=== PATIENT | male | born 1965 | race Caucasian/White ===

== ENCOUNTER → 2020-03-23 | Day surgery (SDC) | payer BC ==
[2020-03-18 14:57] LABS: BASOPHIL % 0.2 % (0.0-0.2); EOSINOPHIL # 0.1 10^3/uL (0.0-0.2); EOSINOPHIL % 1.3 % (0.0-5.0); LYMPHOCYTES # 1.57 10^3/uL1 (1.0-4.8); LYMPHOCYTES % 17.5 % (24.0-44.0); MEAN CORP HGB 29.8 pg (26-34); MONOCYTES # 0.6 10^3/uL (0.3-0.8); MONOCYTES % 6.8 % (5.0-12.0); NEUTROPHIL # 6.6 10^3/uL (1.8-7.7); PLATELET COUNT 161 10^3/uL (150-400); RED CELL DISTRIBUTION WIDTH 13.2 % (11.5-14.5)
--- NOTE | 2020-03-18 15:00 | PCM.EKG ---
[facility] Test Date: 2020-03-18 Test Time: 14:57:22 Pat Name: SHIMA HERNANDEZ Department: Room: Gender: M Conference Organizer: : 1965 Requested By: MARYLU FERRELL Order Number: [id number] Reading MD: Measurements Intervals [place] Rate: 79 P: 54 KS: 138 QRS: -36 QRSD: 111 T: 61 QT: 384 QTc: 441 Interpretive Statements Sinus rhythm Incomplete RBBB and LAFB Consider right ventricular hypertrophy No previous ECG available for comparison Please click the below link to view image of tracing.
[2020-03-18 15:51] LABS: CALCIUM 9.7 mg/dL (8.4-10.5); CARBON DIOXIDE 24.4 mmol/L (20.0-32)
[2020-03-23] VITALS (12 sets, daily range): BP systolic 138–166; BP diastolic 74–100
[~2020-03-23] VITALS: Ht 170.2 cm; Wt 85.3 kg
[~2020-03-23] MED LIST: ASPI-667 PO; ATOR10TA PO; CLOP75TA52 PO; DECADRON ONE; DILAUDID IV PRN; DILAUDID ONE; DIPRIVAN 100 ML IV ONE; DIPRIVAN IV ONE; EMPA1TAB3 PO; INSU300I SQ; LACTATED RINGERS 1,000 ML IV SCH; LIDOCAINE 2% VIAL ONE; MORPHINE SULFATE ONE; NAROPIN 0.5% 5 MG/ML VIAL ONE; NS 1000ML 1,000 ML ONE; NS 250ML 250 ML IV ONE; NS 3000ML IRR IR ONE; RAMI5CAP37 PO; SODIUM CHLORIDE IRR BOTTLE IR ONE; SUBLIMAZE IV PRN; SUBLIMAZE ONE; TORADOL ONE; TRANDATE IV PRN; VANCOMYCIN HCL 1 GM ONE; VANCOMYCIN HCL 1 GM in NS 250ML 250 ML IV ONE; VERSED ONE; XYLOCAINE 2%-EPI 1:100,000 ONE; ZOFRAN IV PRN; ZOFRAN ONE
--- NOTE | 2020-03-23 09:18 | OPH ---
DATE OF SURGERY: 03/23/2020 PREOPERATIVE DIAGNOSES: 1. Medial meniscal tear, left knee. 2. Osteoarthritis, left knee. POSTOPERATIVE DIAGNOSES: 1. Medial meniscal tear, left knee. 2. Osteoarthritis, left knee. 3. Synovitis, left knee. OPERATIVE PROCEDURES: 1. Arthroscopy of the left knee with partial medial meniscectomy. 2. Partial synovectomy. SURGEON: Vel De La Vega MD ANESTHESIA: LMA. TOURNIQUET TIME: None. BLOOD LOSS: 20 mL. DESCRIPTION OF INDICATIONS: The patient is a 54-year-old male with painful popping and catching about the medial aspect of his left knee over the last 11 months. The patient complains of pain in catching and locking. He has had home exercise program as well as off the shelf bracing and cortisone injection without sustained relief. His x-rays show mild medial compartment narrowing with osteophytes about the patellofemoral joint. The patient's MRI scan shows some arthritic changes about the patellofemoral compartment as well as his medial compartment as well as a tear of the posterior horn of his medial meniscus. The patient did not want to consider total knee arthroplasty and then wanted to proceed with arthroscopy. DESCRIPTION OF PROCEDURE: The patient was placed on the operating table in the supine position. LMA anesthetic was induced without difficulty. The patient had the left thigh padded and a tourniquet was applied. Left lower extremity was then sterilely prepped and draped. Arthroscopy portals were made superolateral, anterolateral and anteromedial. The patient then had the suprapatellar pouch viewed. He had some mild inflammatory synovitis about the suprapatellar pouch. Patellofemoral joint had fairly severe grade 3 and grade 4 chondromalacia about the femoral sulcus as well as the patella. The femoral sulcus was worse in the patella. The patient was noted to have a large medial plica. Later in the case, a shaver was introduced and the plica was resected back to capsule. The medial and lateral gutters were viewed. The lateral gutters had some small osteophytes about the lateral femoral condyle. His medial compartment was entered and the medial compartment was noted to have severe arthritic changes posteriorly about the medial femoral condyle. There was grade 3-4 chondromalacia diffusely about the medial femoral condyle. The patient had a large displaced posterior horn medial meniscal tear. It was resected back to capsule using an upbiter and a shaver. The intercondylar notch was viewed. The anterior and posterior cruciate ligaments were normal. The patient's lateral compartment was viewed in the [id number] position. He has some small areas about the lateral femoral condyle with grade 3 chondromalacia, but no significant loose cartilage or exposed bone. The lateral meniscus was intact. The arthroscopic equipment was then removed from the knee. The portal tracts were closed with 3-0 Ethilon in an interrupted manner. A compressive dressing was applied. The patient had the dressing consisted of 4 x 4s, cast padding and Adrián wrap. The patient was extubated in the operating room and sent to recovery in stable condition. Vel De La Vega MD DR: ACACIA/janet JOB# [id number]
== END | disposition home or self-care (01) ==
LOC: SDC 08:00
PROVIDERS: ATTEND Orthopaedic Surgery
DX: S83.242A Other tear of medial meniscus, current injury, left knee, initial encounter (principal); M17.12 Unilateral primary osteoarthritis, left knee; M65.862 Other synovitis and tenosynovitis, left lower leg; M25.762 Osteophyte, left knee; M22.42 Chondromalacia patellae, left knee; I10 Essential (primary) hypertension; I25.10 Atherosclerotic heart disease of native coronary artery without angina pectoris; E11.9 Type 2 diabetes mellitus without complications; K21.9 Gastro-esophageal reflux disease without esophagitis; I25.2 Old myocardial infarction; Z87.891 Personal history of nicotine dependence; Z79.899 Other long term (current) drug therapy; Z79.01 Long term (current) use of anticoagulants; Z79.82 Long term (current) use of aspirin
CPT/HCPCS: 29881; 36415; 80053; 82948 ×2; 83036; 85025; 93005; A4217 ×2; A4649 ×2; J1100; J1170; J1885; J2001; J2250; J2405; J3010; J3370; J3490; J7030 ×3; J7050; J2270; J2795